=== PATIENT | male | born 2000 | race African-American/Black ===

== ENCOUNTER 2021-12-31 23:18 | Emergency (ER) | payer SELFPAY ==
[~2021-12-31] VITALS: Ht 188 cm; Wt 135.3 kg
[2022-01-01] MEDS ORDERED: cefTRIAXone SODIUM 250 MG VL IM ONE (01:45)
[2022-01-01 02:27] LABS: Basophils # (auto) 0.1 10 ^3/uL (0-0.2); Basophils % (auto) 1.2 % (0.0-2.0); Eosinophils # (auto) 0.1 10 ^3/uL (0-0.8); Eosinophils % (auto) 0.9 % (0.0-7.0); Hemoglobin 14.1 g/dL (13.5-17.5); Lymphocytes # (auto) 2.8 10 ^3/uL (0.4-5.4); Lymphocytes % (auto) 26.5 % (10.0-50.0); Mean Corpuscular Hemoglobin 27.9 pg (28.0-32.0); Mean Corpuscular Hgb Conc. 33.5 g/dL (32.0-36.0); Mean Corpuscular Volume 83.4 fL (80.0-100.0); Monocytes % (auto) 9.1 % (0.0-12.0); Neutrophils # (auto) 6.6 10 ^3/uL (1.6-8.6); Neutrophils % (auto) 62.3 % (37.0-80.0); Nucleated Red Blood Cells % 0.1 %; Red Blood Cells 5.04 10^6/uL (4.5-5.90); Red Cell Distribution Width 13.5 % (11.8-14.3); White Blood Cell 10.6 10^3/uL (4.4-10.8)
[2022-01-01 02:46] LABS: Albumin 4.1 g/dL (3.4-5.0); BUN/Creatinine Ratio 13.3; Calcium 9.1 mg/dL (8.5-10.1)
[2022-01-01 02:49] LABS: Bilirubin, Total 0.4 mg/dL (0.2-1.0); Total Protein 7.9 g/dL (6.4-8.2)
[2022-01-01 07:03] VITALS: BP 166/74
== END 2022-01-01 09:14 | disposition home or self-care (01) ==
LOC: ER 23:26
DX: I10 Essential (primary) hypertension (principal); Z91.040 Latex allergy status
CPT/HCPCS: 36415; 71045; 80053; 84443; 84484; 85025; 93005; 96372; 99285; J0696